=== PATIENT | male | born 1985 | race Caucasian/White ===

== ENCOUNTER 2016-12-17 19:22 | Emergency (ER) | payer MEDICARE ==
[~2016-12-17] VITALS: Ht 182.9 cm; Wt 84.0 kg
[2016-12-18] MEDS ORDERED: IBUPROFEN 600MG TABLET PO ONE (03:15)
[2016-12-18 04:24] LABS: HEMATOCRIT. 39.3 % (42.0-52.0); HEMOGLOBIN. 13.1 g/dL (14.0-18.0); MEAN CORPUSCULAR HEMOGLOBIN 31.5 pg (28.0-32.0); MEAN CORPUSCULAR HGB CONC 33.5 g/dL (31.0-37.0); MEAN CORPUSCULAR VOLUME 94.3 fL (80.0-94.0); MEAN PLATELET VOLUME 8.5 fl (7.4-10.4); PLATELET 322 x1000/uL (130-400); RED BLOOD CELL COUNT 4.17 mill/uL (4.7-6.1); RED CELL DISTRIBUTION WIDTH 12.7 % (11.6-14.6); WHITE BLOOD COUNT 8.2 x1000/uL (4.5-11.0)
[2016-12-18 04:26] LABS: DIFFERENTIAL COMMENT 1
[2016-12-18 04:30] VITALS: BP 127/69
[2016-12-18 04:35] LABS: ACETAMINOPHEN < 2 ug/mL (10-30); ANION GAP 9; CALCIUM 8.4 mg/dL (8.5-10.1); CARBON DIOXIDE 30 mEq/L (21-32); CHLORIDE 107 mEq/L (98-107); ETHANOL BLOOD < 10 mg/dL; INDEX HEMOLYSI 2 (1-3); INDEX ICTERIC 1 (1-4); INDEX LIPEMIC 1 (1-3); UREA NITROGEN BLOOD 28 mg/dL (7-21); eGFR > 60 mL/min (>60)
[2016-12-18 05:22] LABS: PLATELET ESTIMATE NORMAL
== END 2016-12-18 07:53 | disposition left against medical advice (07) ==
LOC: ER 19:23
DX: N50.3 Cyst of epididymis (principal); N50.812 Left testicular pain
CPT/HCPCS: 36415; 76870; 80048; 80307; 80329; 85025; 93976; 99285; G0482